=== PATIENT | male | born 2000 | race Hispanic/Latino ===

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

== ENCOUNTER 2022-01-20 13:29 | Emergency (ER) | payer OTHER ==
[2022-01-20] MEDS ORDERED: Acetaminophen 500 MG TAB ONE (13:59)
== END 2022-01-20 14:30 | disposition home or self-care (01) ==
LOC: MADERS 13:29
DX: B34.9 Viral infection, unspecified (principal); F17.290 Nicotine dependence, other tobacco product, uncomplicated
CPT/HCPCS: 87081; 87430; 87804; 99283

== ENCOUNTER 2022-07-12 18:52 | Emergency (ER) | payer OTHER ==
[2022-07-12] MEDS ORDERED: Ibuprofen 800 MG TAB ONE (19:41)
== END 2022-07-12 21:15 | disposition home or self-care (01) ==
LOC: MADERS 18:52
DX: B34.9 Viral infection, unspecified (principal); F17.220 Nicotine dependence, chewing tobacco, uncomplicated; Z20.822 Contact with and (suspected) exposure to COVID-19
CPT/HCPCS: 87804; 99285; U0003; U0005

== ENCOUNTER 2022-11-04 19:16 | Emergency (ER) | payer OTHER, SELFPAY ==
[2022-11-04 20:30] LABS: SARS-CoV-2 NAA Rapid Test DETECTED (NotDetected)
== END 2022-11-04 21:00 | disposition home or self-care (01) ==
LOC: MADERS 19:16
DX: U07.1 COVID-19 (principal); F17.210 Nicotine dependence, cigarettes, uncomplicated
CPT/HCPCS: 87081; 87430; 99283

== ENCOUNTER 2022-11-10 13:20 | Emergency (ER) | payer SELFPAY | END 2022-11-10 13:54 | disposition home or self-care (01) | LOC: MADERS 13:20 | DX: U07.1 COVID-19 (principal); F17.290 Nicotine dependence, other tobacco product, uncomplicated; F17.210 Nicotine dependence, cigarettes, uncomplicated; F17.220 Nicotine dependence, chewing tobacco, uncomplicated | CPT/HCPCS: 87635; 99282 ==

== ENCOUNTER 2024-03-02 21:00 | Emergency (ER) | payer SELFPAY ==
[2024-03-02] MEDS ORDERED: Racepinephrine 2.25% 0.5 ML NEB ONE (22:32)
== END 2024-03-02 22:12 | disposition home or self-care (01) ==
LOC: MADERS 21:00
DX: J10.1 Influenza due to other identified influenza virus with other respiratory manifestations (principal); F17.220 Nicotine dependence, chewing tobacco, uncomplicated; F17.210 Nicotine dependence, cigarettes, uncomplicated
CPT/HCPCS: 87428; 99283